=== PATIENT | male | born 1980 ===

== ENCOUNTER 2021-02-07 20:51 | Inpatient (IN) | payer OTHER ==
[~2021-02-07] VITALS: Ht 185.4 cm; Wt 96.8 kg
[2021-02-07] MEDS ORDERED: LIDOCAINE-MPF 1%, 5ML ONE (21:28)
[2021-02-07] MEDS ORDERED: VANCOMYCIN PER PHARMACY MC ONE (21:30)
[2021-02-07] MEDS ORDERED: SODIUM CHLORIDE 0.9% 1,000ML IVBOLUS ONE (21:30)
[2021-02-07] MEDS ORDERED: SODIUM CHLORIDE FLUSH 10ML SYR IVF ONE (21:30)
[2021-02-07] MEDS ORDERED: PIPERACILLIN/TAZO 3.375 GM in DEXTROSE 5% 50 ML IVPB ONE (21:30)
[2021-02-07 21:49] LABS: HCT (SEDRATE) 41.2 % (39.2-51.8)
[2021-02-07 21:50] LABS: BASOPHILS % (AUTO) 1 % (0-1); EOSINOPHILS % (AUTO) 1 % (1-7); LYMPHOCYTES % (AUTO) 15 % (22-44); MEAN CORPUSCULAR HEMOGLOBIN 33.1 pg (27.5-34.5); MEAN CORPUSCULAR HGB CONC 35.7 g/dL (33.2-36.2); MEAN PLATELET VOLUME 7.8 fL (7.4-10.4); MONOCYTES % (AUTO) 13 % (2-9); NEUTROPHILS % (AUTO) 71 % (42-75); PLATELET COUNT 394 x10^3/uL (130-400); RED BLOOD COUNT 4.62 x10^6/uL (4.38-5.82); RED CELL DISTRIBUTION WIDTH 12.3 % (9.4-14.8)
[2021-02-07 21:57] LABS: ALANINE AMINOTRANSFERASE 83 U/L (12-78); ANION GAP 14 mmol/L (5-15); CALCIUM 9.8 mg/dL (8.5-10.1); CHLORIDE 95 mmol/L (98-107); CREATININE 0.74 mg/dL (0.7-1.3)
[2021-02-07 22:04] LABS: ALKALINE PHOSPHATASE 172 U/L (45-117); TOTAL PROTEIN 8.6 g/dL (6.4-8.2)
[2021-02-07 22:08] LABS: C-REACTIVE PROTEIN, QUANT > 19.00 mg/dL (0.02-0.49)
[2021-02-07 22:09] LABS: ALBUMIN 2.5 g/dL (3.4-5.0)
[2021-02-07] MEDS ORDERED: VANCOMYCIN 2,300 MG in SODIUM CHLORIDE 0.9% 500 ML IV ONE (22:30)
[2021-02-07] MEDS ORDERED: OMNIPAQUE 350 MG/ML, 100ML BOTTLE ONE (22:40)
--- NOTE | 2021-02-07 22:52 | NUR ---
AT BEDSIDE. ERNESTO. WILL CONTINUE TO MONITOR WHILE WAITING FOR ADMISSION.
[2021-02-07] MEDS ORDERED: ONDANSETRON 2MG/ML, 2ML IVPush PRN (23:00)
[2021-02-07] MEDS ORDERED: VANCOMYCIN PER PHARMACY MC PRN (23:00)
[2021-02-07] MEDS ORDERED: LABETALOL 5MG/ML, 20ML IVPush PRN (23:00)
[2021-02-07] MEDS ORDERED: ACETAMINOPHEN 325 MG TABLET PO PRN (23:00)
[2021-02-07] MEDS ORDERED: MELATONIN 5 MG TABLET PO PRN (23:00)
--- NOTE | 2021-02-07 23:08 | NUR ---
1ST ATTMEPT TO CALL REPORT. RN BUSY AND REPORTS SHE WILL CALL BACK.
[2021-02-08 00:07] VITALS: BP 157/102
[2021-02-08] MEDS: HYDROmorphone 2 MG/ML, 1ML IVPush PRN ×4 (00:34→14:30)
[2021-02-08] MEDS: FAMOTIDINE 20 MG TABLET PO SCH ×3 (00:35→19:59)
[2021-02-08 00:39] VITALS: BP 157/102
[2021-02-08] MEDS: POLYETHYLENE GLYCOL 17 GM PACKET PO PRN (00:48)
[2021-02-08] MEDS: CEFEPIME 2 GM in DEXTROSE 5% 100 ML IV SCH ×3 (01:29→16:26)
[2021-02-08] MEDS: INSULIN LISPRO 100 UNITS/ML, PEN SQ-INSULIN SCH ×5 (01:30→20:09)
[2021-02-08] MEDS: OXYcodone IR 5MG TABLET PO PRN ×2 (01:41→20:00)
[2021-02-08] MEDS ORDERED: ASPI81TA45 PO (03:10)
[2021-02-08] MEDS ORDERED: INSU100I28 SQ (03:10)
[2021-02-08] MEDS ORDERED: OXYC5TAB98 PO (03:10)
[2021-02-08] MEDS ORDERED: INSU100I17 SQ (03:10)
[2021-02-08] MEDS ORDERED: [UNRECOGNIZED DRUG - REMARK] PO (03:10)
[2021-02-08] MEDS ORDERED: CETI10TA18 PO (03:10)
[2021-02-08] MEDS ORDERED: AMOX1TAB12 PO (03:10)
[2021-02-08 05:19] LABS: BASOPHILS % (AUTO) 1 % (0-1); EOSINOPHILS % (AUTO) 1 % (1-7); LYMPHOCYTES % (AUTO) 19 % (22-44); MEAN CORPUSCULAR HEMOGLOBIN 32.8 pg (27.5-34.5); MEAN CORPUSCULAR HGB CONC 35.3 g/dL (33.2-36.2); MEAN PLATELET VOLUME 7.1 fL (7.4-10.4); MONOCYTES % (AUTO) 14 % (2-9); NEUTROPHILS % (AUTO) 65 % (42-75); PLATELET COUNT 363 x10^3/uL (130-400); RED BLOOD COUNT 4.09 x10^6/uL (4.38-5.82); RED CELL DISTRIBUTION WIDTH 11.8 % (9.4-14.8)
[2021-02-08 05:28] LABS: ANION GAP 9 mmol/L (5-15); CALCIUM 9.4 mg/dL (8.5-10.1); CHLORIDE 102 mmol/L (98-107)
[2021-02-08 05:30] LABS: CREATININE 0.52 mg/dL (0.7-1.3)
[2021-02-08 07:05] VITALS: BP 134/89
[2021-02-08] MEDS: VANCOMYCIN 1,900 MG in SODIUM CHLORIDE 0.9% 250 ML IV SCH ×2 (10:18→22:20)
[2021-02-08 14:20] VITALS: BP 151/96
[2021-02-08 20:10] VITALS: BP 150/94
[2021-02-09 00:34] VITALS: BP 133/92
[2021-02-09] MEDS: CEFEPIME 2 GM in DEXTROSE 5% 100 ML IV SCH ×3 (00:34→16:18)
[2021-02-09] MEDS: HYDROmorphone 2 MG/ML, 1ML IVPush PRN ×3 (00:42→11:30)
[2021-02-09] MEDS ORDERED: INSU100I28 SQ (01:35)
[2021-02-09] MEDS ORDERED: INSU100I17 SQ (01:35)
[2021-02-09] MEDS ORDERED: POTA10TA PO (01:37)
[2021-02-09] MEDS: KETOROLAC 30 MG/1 ML IV PRN ×3 (03:49→16:18)
[2021-02-09] MEDS: OXYcodone IR 5MG TABLET PO PRN ×2 (03:50→20:21)
[2021-02-09 06:57] VITALS: BP 125/83
[2021-02-09] MEDS: INSULIN LISPRO 100 UNITS/ML, PEN SQ-INSULIN SCH ×4 (07:45→21:04)
[2021-02-09] MEDS: FAMOTIDINE 20 MG TABLET PO SCH ×2 (09:24→20:21)
[2021-02-09] MEDS: VANCOMYCIN 1,900 MG in SODIUM CHLORIDE 0.9% 250 ML IV SCH (10:31)
[2021-02-09 13:11] VITALS: BP 124/81
[2021-02-09] MEDS: VANCOMYCIN 2,000 MG in SODIUM CHLORIDE 0.9% 500 ML IV SCH (17:46)
[2021-02-09 19:25] VITALS: BP 134/86
[2021-02-09] MEDS: POLYETHYLENE GLYCOL 17 GM PACKET PO PRN (20:27)
[2021-02-10] MEDS: HYDROmorphone 2 MG/ML, 1ML IVPush PRN ×2 (01:15→05:29)
[2021-02-10] MEDS: CEFEPIME 2 GM in DEXTROSE 5% 100 ML IV SCH ×2 (01:15→09:25)
[2021-02-10 02:44] VITALS: BP 140/95
[2021-02-10] MEDS: OXYcodone IR 5MG TABLET PO PRN ×2 (02:47→11:19)
[2021-02-10] MEDS: VANCOMYCIN 2,000 MG in SODIUM CHLORIDE 0.9% 500 ML IV SCH (04:26)
[2021-02-10] MEDS: KETOROLAC 30 MG/1 ML IV PRN ×2 (05:29→12:53)
[2021-02-10 07:09] VITALS: BP 138/92
[2021-02-10] MEDS: INSULIN LISPRO 100 UNITS/ML, PEN SQ-INSULIN SCH ×2 (07:23→11:20)
[2021-02-10] MEDS: FAMOTIDINE 20 MG TABLET PO SCH (09:25)
[2021-02-10] MEDS ORDERED: SULF1TAB24 PO (10:44)
[2021-02-10] MEDS ORDERED: CEPH750C9 PO (10:44)
== END 2021-02-10 13:10 | disposition home or self-care (01) | DRG 603 ==
LOC: ED 23:50 → EDIP 23:52 → 3N 23:54
PROVIDERS: ADMIT Internal Medicine; ATTEND Family Medicine
DX: L03.113 Cellulitis of right upper limb (principal); E87.1 Hypo-osmolality and hyponatremia; Z79.4 Long term (current) use of insulin; E11.65 Type 2 diabetes mellitus with hyperglycemia
CPT/HCPCS: 20600; 36415; 80048; 80053; 80202; 82962; 83036; 83605; 83735; 84550; 85025; 85651; 86140; 87040; 87070; 87205; 96374; 96375; G0378; J1170; J1885; J2543; J3370; Q9967; J1815; J7030; J7040; J7050